=== PATIENT | male | born 1960 | race Caucasian/White ===

== ENCOUNTER 2019-05-04 16:28 | Emergency (ER) | payer OTHER ==
[2019-05-04] MEDS ORDERED: Aspirin 81 MG Tab.Chew ONE (16:31)
[2019-05-04] MEDS ORDERED: Nitroglycerin 0.4 MG Tab.SL SL PRN (16:38)
[2019-05-04] MEDS ORDERED: Sodium Chloride 0.9% 10 ML Syringe FLUSH PRN (16:38)
[2019-05-04] MEDS ORDERED: Morphine 4 MG/ML Syringe IVPUSH PRN (16:38)
[2019-05-04] MEDS ORDERED: Clopidogrel 75 MG Tab PO ONE (16:38)
[2019-05-04] MEDS ORDERED: Heparin Sodium 5,000 Units/ML Vial IVPUSH ONE (16:38)
[2019-05-04] MEDS ORDERED: Aspirin 81 MG Tab.Chew PO ONE (16:38)
[2019-05-04] MEDS ORDERED: Heparin Sodium/D5W 25,000 UNITS/500 ML BAG IV SCH (16:45)
[2019-05-04] MEDS ORDERED: Metoprolol Tartrate 50 MG Tab ONE (16:47)
--- NOTE | 2019-05-04 16:59 | EDM.PDOC ---
ED HPI GENERAL MEDICAL PROBLEM - General Chief Complaint: Chest Pain Time Seen by Provider: 05/04/19 16:32 Source of Information: Reports: Patient, Family, RN Notes Reviewed History Limitations: Reports: No Limitations - History of Present Illness INITIAL COMMENTS - FREE TEXT/NARRATIVE: 58-year-old gentleman presents emergency department today with complaint of chest pain, he was out riding his bike developed some chest pressure rated 6 out of 10. He does have a known history coronary artery disease with myocardial infarction in 2015 with stenting, he was diaphoretic at the time but no nausea vomiting shortness of breath Past Medical History Cardiovascular History: Reports: CAD, High Cholesterol, Hypertension, [place] Endocrine/Metabolic History: Reports: Hypothyroidism Social & Family History - Tobacco Use Smoking Status *Q: Unknown Ever Smoked ED ROS GENERAL - Review of Systems Review Of Systems: See Below Constitutional: Reports: Diaphoresis HEENT: Reports: No Symptoms Respiratory: Reports: No Symptoms Cardiovascular: Reports: Chest Pain GI/Abdominal: Reports: No Symptoms : Reports: No Symptoms Musculoskeletal: Reports: No Symptoms ED EXAM, GENERAL - Physical Exam Exam: See Below Exam Limited By: No Limitations General Appearance: Alert (Auto), WD/WN, No Apparent Distress Respiratory/Chest: No Respiratory Distress, Lungs Clear, Normal Breath Sounds, No Accessory Muscle Use, Chest Non-Tender Cardiovascular: Regular Rate, Rhythm, No Murmur GI/Abdominal: Soft, Non-Tender Course - Vital Signs Last Recorded V/S: Last Vital Signs Temp 96.9 F 05/04/19 16:33 Pulse 113 H 05/04/19 16:33 Resp 13 05/04/19 16:33 BP 148/94 H 05/04/19 16:33 Pulse Ox 96 05/04/19 16:33 - Orders/Labs/Meds Orders: Active Orders 24 hr Category Date Time Status Cardiac Monitoring [RC] .As Directed Care 05/04/19 16:41 Ordered Cardiac Monitoring [RC] STAT Care 05/04/19 16:38 Ordered Communication Order [RC] Per Unit Routine Care 05/04/19 16:38 Ordered Communication Order [RC] Per Unit Routine Care 05/04/19 16:38 Ordered Oxygen Therapy [RC] ASDIRECTED Care 05/04/19 16:38 Ordered Peripheral IV Care [RC] . DIRECTED Care 05/04/19 16:38 Ordered CK W CKMB [CHEM] Stat Lab 05/04/19 16:41 Ordered TROPONIN I [CHEM] Stat Lab 05/04/19 16:41 Ordered Heparin Sodium/D5W [Heparin 25,000 Units in D5W 500 ML] Med 05/04/19 16:45 Ordered 25,000 units in 500 ml IV TITRATE Morphine Med 05/04/19 16:38 Ordered 4 mg IVPUSH Q10M PRN Nitroglycerin [Nitrostat] Med 05/04/19 16:38 Ordered 0.4 mg SL Q5M PRN Sodium Chloride 0.9% [Saline Flush] Med 05/04/19 16:38 Ordered 10 ml FLUSH ASDIRECTED PRN Peripheral IV Insertion Adult [OM.PC] Stat Oth 05/04/19 16:38 Ordered Medication Orders Heparin Sodium/Dextrose (Heparin 25,000 Units In D5w 500 Ml) 25,000 units in 500 mls @ 25.08 mls/hr IV TITRATE KELLY; Protocol Morphine Sulfate (Morphine) 4 mg IVPUSH Q10M PRN PRN Reason: Chest Pain Stop: 05/05/19 16:39 Nitroglycerin (Nitrostat) 0.4 mg SL Q5M PRN PRN Reason: Chest Pain Stop: 05/05/19 16:39 Sodium Chloride (Saline Flush) 10 ml FLUSH ASDIRECTED PRN PRN Reason: Keep Vein Open Labs: Laboratory Tests 05/04/19 Range/Units 16:41 WBC 19.6 H (4.5-11.0) K/uL RBC 4.68 (4.30-5.90) M/uL Hgb 14.4 (12.0-15.0) g/dL Hct 40.5 (40.0-54.0) % MCV 87 (80-98) fL MCH 31 (27-31) pg MCHC 36 (32-36) % Plt Count 270 (150-400) K/uL Neut % (Auto) 78 H (36-66) % Lymph % (Auto) 12 L (24-44) % [place] % (Auto) 9 H (2-6) % Eos % (Auto) 1 L (2-4) % Baso % (Auto) 0 (0-1) % Meds: Medications Generic Name Dose Route Start Last Admin Trade Name Freq PRN Reason Stop Dose Admin Heparin Sodium/Dextrose 25,000 units in 500 mls @ 25.08 mls/hr 05/04/19 16:45 Heparin 25,000 Units In D5w 500 Ml IV TITRATE KELLY Protocol 12 UNITS/KG/HR Morphine Sulfate 4 mg 05/04/19 16:38 Morphine IVPUSH 05/05/19 16:39 Q10M PRN Chest Pain Nitroglycerin 0.4 mg 05/04/19 16:38 Nitrostat SL 05/05/19 16:39 Q5M PRN Chest Pain Sodium Chloride 10 ml 05/04/19 16:38 Saline Flush FLUSH ASDIRECTED PRN Keep Vein Open Discontinued Medications Generic Name Dose Route Start Last Admin Trade Name Freq PRN Reason Stop Dose Admin Aspirin 324 mg 05/04/19 16:38 05/04/19 16:47 Aspirin PO 05/04/19 16:39 324 mg ONETIME ONE Administration Clopidogrel Bisulfate 600 mg 05/04/19 16:38 05/04/19 16:48 Plavix PO 05/04/19 16:39 600 mg ONETIME ONE Administration Heparin Sodium (Porcine) 4,000 units 05/04/19 16:38 05/04/19 16:48 Heparin Sodium IVPUSH 05/04/19 16:39 4,000 units BOLUS ONE Administration Metoprolol Tartrate Confirm 05/04/19 16:47 Lopressor Administered 05/04/19 16:48 Dose 50 mg .ROUTE .STK-MED ONE Departure - Departure Time of Disposition: 16:58 Disposition: DC/Tfer to Acute Hospital 02 Reason for Transfer *Q: Primary PCI Indicated Condition: Fair Clinical Impression: ST elevation myocardial infarction (STEMI) Qualifiers: Involved coronary artery: right coronary artery Qualified Code(s): I21.11 - ST elevation (STEMI) myocardial infarction involving right coronary artery - My Orders Last 24 Hours: My Active Orders 05/04/19 16:38 Cardiac Monitoring [RC] STAT Communication Order [RC] Per Unit Routine Communication Order [RC] Per Unit Routine Oxygen Therapy [RC] ASDIRECTED Peripheral IV Care [RC] . DIRECTED Morphine 4 mg IVPUSH Q10M PRN Nitroglycerin [Nitrostat] 0.4 mg SL Q5M PRN Sodium Chloride 0.9% [Saline Flush] 10 ml FLUSH ASDIRECTED PRN Peripheral IV Insertion Adult [OM.PC] Stat 05/04/19 16:41 Cardiac Monitoring [RC] .As Directed CK W CKMB [CHEM] Stat TROPONIN I [CHEM] Stat 05/04/19 16:45 Heparin Sodium/D5W [Heparin 25,000 Units in D5W 500 ML] 25,000 units in 500 ml IV TITRATE - Assessment/Plan Last 24 Hours: My Active Orders 05/04/19 16:38 Cardiac Monitoring [RC] STAT Communication Order [RC] Per Unit Routine Communication Order [RC] Per Unit Routine Oxygen Therapy [RC] ASDIRECTED Peripheral IV Care [RC] . DIRECTED Morphine 4 mg IVPUSH Q10M PRN Nitroglycerin [Nitrostat] 0.4 mg SL Q5M PRN Sodium Chloride 0.9% [Saline Flush] 10 ml FLUSH ASDIRECTED PRN Peripheral IV Insertion Adult [OM.PC] Stat 05/04/19 16:41 Cardiac Monitoring [RC] .As Directed CK W CKMB [CHEM] Stat TROPONIN I [CHEM] Stat 05/04/19 16:45 Heparin Sodium/D5W [Heparin 25,000 Units in D5W 500 ML] 25,000 units in 500 ml IV TITRATE Plan: Assessment Acuity = acute Site and laterality = ST elevation myocardial infarction Etiology = coronary artery disease Manifestations = none Location of injury = Home Lab values = EKG demonstrates ST elevation in 23 and aVF with reciprocal changes in 1 aVL and V2 consistent with myocardial infarction Plan Called discussed case with Dr. 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
[2019-05-04] MEDS ORDERED: Nitroglycerin/D5W 25 MG/250 ML BOTTLE ONE (17:09)
[2019-05-04] MEDS ORDERED: Nitroglycerin/D5W 25 MG/250 ML BOTTLE IV SCH (17:15)
[2019-05-07] MEDS ORDERED: Metoprolol Tartrate 50 MG Tab PO ONE (11:32)
== END 2019-05-04 17:28 ==
LOC: JP.ED 16:28
DX: I21.11 ST elevation (STEMI) myocardial infarction involving right coronary artery (principal); I25.10 Atherosclerotic heart disease of native coronary artery without angina pectoris; Z95.5 Presence of coronary angioplasty implant and graft
CPT/HCPCS: 36415; 82550; 82553; 84484; 85025; 96374; 96375; 99285; A9270; J1644; J2270; J3490; 93005; 93010